=== PATIENT | female | born 1950 | race Caucasian/White ===

== ENCOUNTER 2016-06-11 10:18 | Observation (INO) | payer MEDICARE, OTHER ==
[~2016-06-11] VITALS: Ht 172.7 cm; Wt 70.0 kg
[2016-06-11] VITALS (7 sets, daily range): BP systolic 99–118; BP diastolic 46–57; PULSE 56–61; RESP 16–21; TEMP 97.7–98.7; O2SAT 93–98
[~2016-06-11 10:18] MED LIST: ACET325 PO; ARIC5TAB PO; ASPI81TA82 PO; ATEN-100 PO; CALTTAB PO; OMPR20CCR PO; OSTETAB3 PO; RIVA20 PO; SIMV20TA PO; TAB-TAB PO; Z.0.CPM; ZOFR8TAB PO
[2016-06-11] MEDS ORDERED: SODIUM CHLOR 0.9% 1000 ML INJ 1,000 ML IV ONE (12:45)
--- NOTE | 2016-06-11 12:59 | RADRPT ---
EXAM DATE/TIME: 06/11/2016 12:26 [facility] COMPARISON: No previous studies available for comparison. INDICATIONS : Chest pains mid sternal with shortness of breath. MEDICAL HISTORY : None. SURGICAL HISTORY : None. ENCOUNTER: Initial ACUITY: 1 day PAIN SCORE: 6/10 LOCATION: Bilateral chest FINDINGS: A single view of the chest demonstrates the lungs to be symmetrically aerated without evidence of mas s, infiltrate or effusion. The cardiomediastinal contours are unremarkable. Osseous structures are intact. CONCLUSION: No acute disease. Maximino Lam MD on June 11, 2016 at 12:57 Board Certified Radiologist. This report was verified electronically.
--- NOTE | 2016-06-11 13:53 | PD ---
HPI Chief Complaint: Cardiac Complaint Time Seen by Provider: 12:16 Travel History International Travel<30 days: No Contact w/Intl Traveler<30days: No Traveled to known affect area: No History of Present Illness HPI Patient is a 65-year-old female who presents to emergency room with complaints of near syncopal episode today. 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 Patient's friend who is at bedside reports the patient looked pale when this occurred. Patient reports that she felt as if her heart was beating really fast and felt as if she had irregular heart rate. Patient reports concerns as she has history of V. tach in the past, reports that the tech happened in the . Patient reports that because she had a few near-syncopal episodes this morning, decided to come to emergency room for evaluation. Patient currently with just generalized weakness. Patient denies any chest pain or shortness of breath at this time. Patient with no other complaints. PFSH Past Medical History Arthritis: Yes Heart Rhythm Problems: Yes (VTACH HX) Cancer: No Cardiovascular Problems: Yes (HX NON SUSTAINED V-TACH (CONTROLLED), HX THROMBUS ) High Cholesterol: Yes Diabetes: No Endocrine: No Gastrointestinal Disorders: Yes (GERD) Genitourinary: No Hepatitis: No Hiatal Hernia: No Hypertension: No Immune Disorder: No Implanted Vascular Access Dvce: No Musculoskeletal: Yes (ARTHRITIS) Neurologic: Yes (MILD COGNITIVE RECALL) Psychiatric: No Reproductive: No Respiratory: No Thyroid Disease: No Menopausal: Yes : 0 Past Surgical History Abdominal Surgery: No AICD: No Body Medical Devices: LEFT HIP REPLACEMENT Cardiac Surgery: No Ear Surgery: No Eye Surgery: No Gynecologic Surgery: Yes (HYSTEROSCOPY) Joint Replacement: Yes (HILARIO. HIPS) Neurologic Surgery: No Oral Surgery: No Pacemaker: No Thoracic Surgery: No Other Surgery: Yes Family History Family History: Negative Social History Alcohol Use: Yes (OCC WINE) Tobacco Use: No Substance Use: No Allergies-Medications (Allergen,Severity, Reaction): Coded Allergies: No Known Allergies (Verified , 11/05/14) Reported Meds & Prescriptions Reported Meds & Active Scripts Active Reported Metamucil (Psyllium Hydrophilic Mucilloid) 48.57 % Pow DIRECTED Tylenol 8 Hour Arthritis (Acetaminophen) 650 Mg Tab 650 Mg PO DIRECTED PRN Glucosamine 1,500 Mg Tab 1,500 Mg PO DAILY Calcium 600+D (Calcium Carbonate-Cholecalciferol) 600-800 Mg-Unit Tab 1 Tab PO BID Multi Vitamin (Multiple Vitamin) 1 Tab Tab 1 Tab PO DAILY Aspirin Adult Low Strength (Aspirin) 81 Mg Tabdr 81 Mg PO DAILY Atenolol 25 Mg Tab 25 Mg PO DAILY Namenda (Memantine) 10 Mg Tab 10 Mg PO BID Aricept (Donepezil) 10 Mg Tab 10 Mg PO HS Review of Systems General / Constitutional: No: Fever Eyes: No: Visual changes HENT: Positive: Lightheadedness, No: Headaches Cardiovascular: Positive: Chest Pain or Discomfort, Palpitations, Irregular Rhythm, Tachycardia, Diaphoresis, Syncope Respiratory: No: Shortness of Breath Gastrointestinal: No: Abdominal Pain Genitourinary: No: Dysuria Musculoskeletal: No: Pain Skin: No Rash Neurologic: Positive: Weakness Psychiatric: No: Depression Endocrine: No: Polydipsia Hematologic/Lymphatic: No: Easy Bruising Physical Exam Narrative GENERAL: NAD, Nontoxic SKIN: Warm and dry. HEAD: Atraumatic. Normocephalic. EYES: Pupils equal and round. No scleral icterus. No injection or drainage. ENT: No nasal bleeding or discharge. Mucous membranes pink and moist. NECK: Trachea midline. No JVD. CARDIOVASCULAR: Regular rate and rhythm. No murmur appreciated. RESPIRATORY: No accessory muscle use. Clear to auscultation. Breath sounds equal bilaterally. GASTROINTESTINAL: Abdomen soft, non-tender, nondistended. Hepatic and splenic margins not palpable. MUSCULOSKELETAL: No obvious deformities. No clubbing. No cyanosis. No edema. NEUROLOGICAL: Awake and alert. No obvious cranial nerve deficits. Motor grossly within normal limits. Normal speech. PSYCHIATRIC: Appropriate mood and affect; insight and judgment normal. Data Data Last Documented VS Vital Signs Date Time Temp Pulse Resp B/P Pulse Ox O2 Delivery O2 Flow Rate FiO2 06/11/16 14:03 54 103/51 51 111/53 58 110/57 06/11/16 12:14 16 06/11/16 10:20 97.7 97 Room Air Orders Electrocardiogram (06/11/16 ) Complete Blood Count With Diff (06/11/16 11:43) Basic Metabolic Panel (Bmp) (06/11/16 11:43) Ckmb (Isoenzyme) Profile (06/11/16 11:43) Troponin I (06/11/16 11:43) Chest, Single Ap (06/11/16 11:43) Orthostatic Vital Signs (06/11/16 12:30) Sodium Chlor 0.9% 1000 Ml Inj (Ns 1000 M (06/11/16 12:45) CKMB (06/11/16 14:10) CKMB% (06/11/16 14:10) Aspirin (Aspirin) (06/11/16 15:30) Admit Order (Ed Use Only) (06/11/16 15:29) Labs Laboratory Tests Test 06/11/16 14:10 White Blood Count 7.7 TH/MM3 Red Blood Count 4.12 MIL/MM3 Hemoglobin 13.2 GM/DL Hematocrit 38.3 % Mean Corpuscular Volume 93.0 FL Mean Corpuscular Hemoglobin 32.1 PG Mean Corpuscular Hemoglobin 34.5 % Concent Red Cell Distribution Width 14.0 % Platelet Count 244 TH/MM3 Mean Platelet Volume 8.2 FL Neutrophils (%) (Auto) 68.5 % Lymphocytes (%) (Auto) 21.5 % Monocytes (%) (Auto) 8.0 % Eosinophils (%) (Auto) 1.6 % Basophils (%) (Auto) 0.4 % Neutrophils # (Auto) 5.3 TH/MM3 Lymphocytes # (Auto) 1.6 TH/MM3 Monocytes # (Auto) 0.6 TH/MM3 Eosinophils # (Auto) 0.1 TH/MM3 Basophils # (Auto) 0.0 TH/MM3 CBC Comment DIFF FINAL Differential Comment Sodium Level 140 MEQ/L Potassium Level 4.2 MEQ/L Chloride Level 106 MEQ/L Carbon Dioxide Level 28.2 MEQ/L Anion Gap 6 MEQ/L Blood Urea Nitrogen 17 MG/DL Creatinine 0.69 MG/DL Estimat Glomerular Filtration 85 ML/MIN Rate Random Glucose 74 MG/DL Calcium Level 9.4 MG/DL Total Creatine Kinase 112 U/L Creatine Kinase MB 2.1 NG/ML Troponin I LESS THAN 0.02 NG/ML MDM Medical Decision Making Medical Screen Exam Complete: Yes Emergency Medical Condition: Yes Interpretation(s) EKG at 1107: Sinus bradycardia at 53 bpm, QT/QTC: 441/424, no acute st or t wave changes Vital Signs Date Time Temp Pulse Resp B/P Pulse Ox O2 Delivery O2 Flow Rate FiO2 06/11/16 12:14 16 06/11/16 10:20 97.7 58 16 118/56 97 Room Air Differential Diagnosis Arrhythmia, ACS, electrolyte abnormality, vasovagal syncope, dehydration, pneumonia Narrative Course Patient is a 65-year-old female who presents to emergency room with complaints of near syncopal episode today. Patient reports that she had a few episodes of near-syncope today with associated diaphoresis, lightheadedness, dizziness and chest pain. Patient was placed on promotional model arrival to his room. EKG ordered and evaluated, no acute ST-T wave changes. CBC, BMP, cardiac enzymes as well as x-ray of chest ordered for further evaluation symptoms. All labs and all studies reviewed, patient feeling much better. Plan to observation for near syncope and cardiac monitoring Case reviewed with family practice residents, accepts patients to service of Dr Miller Diagnosis Primary Impression: Near syncope Admitting Information Admitting Physician Requests: Observation Fe Mason DO Jun 11, 2016 13:53
[2016-06-11 14:38] LABS: AUTOMATED NEUTROPHIL # 5.3 TH/MM3 (1.8-7.7); BASOPHIL % 0.4 % (0.0-2.0); EOSINOPHIL # 0.1 TH/MM3 (0-0.4); EOSINOPHIL % 1.6 % (0.0-4.0); HEMATOCRIT 38.3 % (35.0-46.0); HEMO FLAGS DIFF FINAL; LYMPH % 21.5 % (9.0-44.0); LYMPHOCYTE # 1.6 TH/MM3 (1.0-4.8); MEAN CORPUSCULAR HEMOGLOBIN 32.1 PG (27.0-34.0); MEAN CORPUSCULAR HGB CONC 34.5 % (32.0-36.0); NEUT % 68.5 % (16.0-70.0); PLATELET COUNT 244 TH/MM3 (150-450); RED BLOOD COUNT 4.12 MIL/MM3 (4.00-5.30); WHITE BLOOD COUNT 7.7 TH/MM3 (4.0-11.0)
[2016-06-11] MEDS ORDERED: CALC1TAB37 PO (14:40)
[2016-06-11] MEDS ORDERED: META48.54 (14:40)
[2016-06-11] MEDS ORDERED: GLUC15009 PO (14:40)
[2016-06-11] MEDS ORDERED: NAME10TA PO (14:40)
[2016-06-11] MEDS ORDERED: ARIC10TA PO (14:40)
[2016-06-11] MEDS ORDERED: ASPI1TAB91 PO (14:40)
[2016-06-11] MEDS ORDERED: MULT-135 PO (14:40)
[2016-06-11] MEDS ORDERED: TYLE650T9 PO (14:40)
[2016-06-11] MEDS ORDERED: ATEN25TA PO (14:40)
[2016-06-11 14:55] LABS: ANION GAP 6 MEQ/L (5-15); BICARBONATE 28.2 MEQ/L (21.0-32.0); BLOOD UREA NITROGEN 17 MG/DL (7-18); CHLORIDE 106 MEQ/L (98-107); CREATINE KINASE 112 U/L (26-192); GLOMERULAR FILTRATION RATE 85 ML/MIN (>89); SODIUM (NA) 140 MEQ/L (136-145)
[2016-06-11 15:11] LABS: POTASSIUM 4.2 MEQ/L (3.5-5.1)
[2016-06-11 15:24] LABS: CKMB 2.1 NG/ML (0.5-3.6)
[2016-06-11] MEDS ORDERED: ASPIRIN 325 MG TAB PO ONE (15:30)
--- NOTE | 2016-06-11 15:34 | HHI.HP ---
[facility] Service Family Medicine Primary Care Physician Torie Cruz MD Admission Diagnosis Diagnoses: Chief Complaint: Lightheadedness International Travel<30 Days: No Contact w/Intl Traveler<30days: No Known Affected Area: No History of Present Illness 65 year old female with history of non-sustained V-tach presents to ED with complaints of feeling lightheaded with irregular heartbeat earlier today. 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 She also reports feeling an irregular heartbeat intermittently during that time; she states after about 40 minutes of feeling like this, her decided to bring her to the ED. states patient was also pale and diaphoretic. Patient denies chest pain. She states she went to a commercial energy rater for a few years; however she does not currently follow up with a commercial energy rater. She reports her last episode like this was in 2008. Patient denies any significant etoh intake in the last few days. 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 (Michael Sanders MD R1) Review of Systems Constitutional: COMPLAINS OF: Diaphoretic episodes Respiratory: DENIES: Shortness of breath Cardiovascular: COMPLAINS OF: Palpitations, DENIES: Chest pain, Syncope, Lower Extremity Edema Gastrointestinal: COMPLAINS OF: Nausea, DENIES: Vomiting (Michael Sanders MD R1) Past Family Social History Past Medical History DVT of RLE GERD Arthritis Hypercholesterolemia NSVT Alzheimer's Disease, diagnosed with mild cognitive impairment in 2013 Past Surgical History R hip replacement 2010 L hip surgery 2013 R knee replacement mid 2014 Colonoscopy 2012 Reported Medications Reported Meds & Active Scripts Active Reported Metamucil (Psyllium Hydrophilic Mucilloid) 48.57 % Pow DIRECTED Glucosamine 1,500 Mg Tab 1,500 Mg PO DAILY Calcium 600+D (Calcium Carbonate-Cholecalciferol) 600-800 Mg-Unit Tab 1 Tab PO BID Multi Vitamin (Multiple Vitamin) 1 Tab Tab 1 Tab PO DAILY Aspirin Adult Low Strength (Aspirin) 81 Mg Tabdr 81 Mg PO DAILY Atenolol 25 Mg Tab 25 Mg PO DAILY Namenda (Memantine) 10 Mg Tab 10 Mg PO BID Aricept (Donepezil) 10 Mg Tab 10 Mg PO HS (Michael Sanders MD R1) Allergies: Coded Allergies: No Known Allergies (Verified , 11/05/14) Family History Mother: Parkinson's, Alzheimers, Cardiomegaly Father: Osteoarthritis, A-fib, HLD, HTN Social History Tobacco: previous smoker quit in 1987, had smoked about 1 PPD for a few years Etoh: social occasions only Illicit drug use: never 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 SKIN: No rashes, ecchymoses or lesions. Cool and dry. HEAD: Atraumatic. Normocephalic. No temporal or scalp tenderness. EYES: PERRL. EOMI. No scleral icterus. No injection or drainage. ENT: No nasal drainage. MMM. Uvula midline. Airway patent. NECK: Trachea midline. No JVD. Supple. CARDIOVASCULAR: Regular rate and rhythm without murmurs, gallops, or rubs. RESPIRATORY: Clear to auscultation. Breath sounds equal bilaterally. No wheezes , rales, or rhonchi. GASTROINTESTINAL: Abdomen soft, nontender, nondistended. No hepatosplenomegaly or palpable masses. No guarding. MUSCULOSKELETAL: Extremities without cyanosis or edema. No joint tenderness or edema noted. No calf tenderness. NEUROLOGICAL: Awake and alert. Cranial nerves II through XII intact. Motor and sensory grossly within normal limits Laboratory Laboratory Tests Test 06/11/16 14:10 White Blood Count 7.7 Red Blood Count 4.12 Hemoglobin 13.2 Hematocrit 38.3 Mean Corpuscular Volume 93.0 Mean Corpuscular Hemoglobin 32.1 Mean Corpuscular Hemoglobin 34.5 Concent Red Cell Distribution Width 14.0 Platelet Count 244 Mean Platelet Volume 8.2 Neutrophils (%) (Auto) 68.5 Lymphocytes (%) (Auto) 21.5 Monocytes (%) (Auto) 8.0 Eosinophils (%) (Auto) 1.6 Basophils (%) (Auto) 0.4 Neutrophils # (Auto) 5.3 Lymphocytes # (Auto) 1.6 Monocytes # (Auto) 0.6 Eosinophils # (Auto) 0.1 Basophils # (Auto) 0.0 CBC Comment DIFF FINAL Differential Comment Sodium Level 140 Potassium Level 4.2 Chloride Level 106 Carbon Dioxide Level 28.2 Anion Gap 6 Blood Urea Nitrogen 17 Creatinine 0.69 Estimat Glomerular Filtration 85 Rate Random Glucose 74 Calcium Level 9.4 Total Creatine Kinase 112 Creatine Kinase MB 2.1 Troponin I LESS THAN 0.02 (Michael Sanders MD R1) Result Diagram: 06/11/16 1410 06/11/16 1410 Assessment and Plan Assessment and Plan 65 year old female with history of non-sustained V-tach presents with: Code Status Full code Discussed Condition With sdw Dr. Jhaveri wdw Dr. Miller (Michael Sanders MD R1) Problem List: (1) Near syncope Status: Acute Plan: Most likely due to a cardiac arrhythmia as patient has a h/o NSVT Orthostatic vital signs are unremarkable EKG shows sinus bradycardia - Will keep patient on continuous telemetry - Obtain carotid US - Continue home atenolol, monitor pulse as it is slightly bradycardic - Trend troponins and EKGs to rule out an ACS (2) Dementia Status: Acute Plan: Continue home medications (3) Nutrition, metabolism, and development symptoms Status: Acute Plan: Fluids: none Electrolytes: WNLs Nutrition: heart healthy diet DVT PPX: Lovenox (Michael Sanders MD R1) Physician Certification 2 Midnight Certification Type: Admission for Inpatient Services Order for Inpatient Services The services are ordered in accordance with Medicare regulations or non- Medicare payer requirements, as applicable. In the case of services not specified as inpatient-only, they are appropriately provided as inpatient services in accordance with the 2-midnight benchmark. Estimated LOS (days): 1 days is the estimated time the patient will need to remain in the hospital, assuming treatment plan goals are met and no additional complications. Post-Hospital Plan: Home (Michael Sanders MD R1) 2 Midnight Certification Type: Admission for Inpatient Services Post-Hospital Plan: Not yet determined (Semaj Miller MD) Michael Sanders MD R1 Jun 11, 2016 15:34 Semaj Miller MD Jun 11, 2016 18:55
[2016-06-11] MEDS ORDERED: SODIUM CHLORIDE 0.9% FLUSH 5 ML FLUSH FLUSH PRN (16:45)
[2016-06-11] MEDS ORDERED: SODIUM CHLORIDE 0.9% FLUSH 5 ML FLUSH IVF PRN (16:45)
[2016-06-11] MEDS ORDERED: NALOXONE HCL 0.4 MG/ML AMP IV PRN (16:45)
[2016-06-11] MEDS: ASPIRIN EC 81 MG TABEC PO SCH (17:00)
[2016-06-11] MEDS ORDERED: ACETAMINOPHEN 650 MG PO PRN (17:00)
[2016-06-11] MEDS ORDERED: ACETAMINOPHEN 325 MG TAB PO PRN (17:00)
[2016-06-11] MEDS: ATENOLOL 25 MG TAB PO SCH (17:00)
[2016-06-11] MEDS ORDERED: DOCUSATE SODIUM 50 MG/SENNA 8.6 MG TAB PO PRN (18:00)
[2016-06-11] MEDS ORDERED: ONDANSETRON HCL 4 MG/2 ML VIAL IV PRN (18:00)
--- NOTE | 2016-06-11 19:38 | EKG ---
Date Performed: 06/11/2016 Time Performed: 11:07:25 PTAGE: 65 years EKG: SINUS BRADYCARDIA Compared to prior tracing no significant change BORDERLINE ECG PREVIOUS TRACING : 06/16/2013 08.25 DOCTOR: Ebenezer Polanco Interpretating Date/Time 06/11/2016 19:36:35
--- NOTE | 2016-06-11 20:03 | HHI.FPPN ---
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 Did have some nausea, no chest pain. By the time of presentation to the emergency room she was relatively asymptomatic. Notable in the while working in [place] she was diagnosed with ventricular tachycardia which presented as a near syncopal episode while driving. Extensive evaluation at that time led to her being placed on atenolol. She has seen a local ditch cleaner grossly 4 years ago and thinks that that time she had a echocardiogram, possibly monitoring, and a nuclear stress test. No history of coronary disease. Please refer to resident history and physical for complete discussion of the past medical history, family history, social history and review of systems. Notable that the patient self describes herself as having a dementia, has been on Aricept, also demented. Her primary care physician is Dr. Dorman, a local donor specialist. Objective Vitals Vital Signs Date Time Temp Pulse Resp B/P Pulse Ox O2 Delivery O2 Flow Rate FiO2 06/11/16 18:49 97.9 61 20 101/46 93 06/11/16 14:03 54 103/51 51 111/53 58 110/57 06/11/16 12:14 16 06/11/16 10:20 97.7 58 16 118/56 97 Room Air Result Diagram: 06/11/16 1410 06/11/16 1410 Objective Remarks Vital signs noted. Examined in the presence of the nurse. Gen. appearance: Youthful appearing patient, normal affect, excellent eye contact. HEENT: Grossly nonlocalizing. Neck: No thyromegaly, carotid bruits or adenopathy. Lungs: Clear to auscultation. Cardiac: S1-S2, no appreciable murmurs. (Patient describes in the past having been told that she had tricuspid insufficiency). Abdomen: Soft and benign, PO2 unremarkable, no tenderness, no masses or organomegaly. Extremities: No edema, intact pedal pulses, feet are warm and dry. Neurologic: Grossly nonlocalizing. Labs and EKG reviewed. Sinus rhythm pulse 53 at the time of EKG. A/P Assessment and Plan Clinical assessment: 65-year-old woman with a history of having been diagnosed in the of ventricular tachycardia treated medically. Presents with a 45 minute episode of near syncope with diaphoresis nausea and vomiting described as "ortiz". Do suspect a significant cardiac arrhythmia. Also history of dementia self described by the patient with some memory impairment and difficulty finding correct words. Patient seen and examined. Case reviewed and discussed with resident team. Agree with plan of care as discussed with the and documented in the resident note. Semaj Miller MD Jun 11, 2016 20:03
[2016-06-11] MEDS: MEMANTINE HCL 10 MG TAB PO SCH (20:37)
[2016-06-11] MEDS: SODIUM CHLORIDE 0.9% FLUSH 5 ML FLUSH IVF SCH (20:37)
[2016-06-11] MEDS ORDERED: DONEPEZIL HCL 5 MG TAB PO SCH (21:00)
[2016-06-11] MEDS ORDERED: SODIUM CHLORIDE 0.9% FLUSH 5 ML FLUSH FLUSH SCH (21:00)
[2016-06-11 22:22] LABS: CREATINE KINASE 84 U/L (26-192)
[2016-06-12 01:49] VITALS: BP_SYST 109; BP_SYST 145; BP_DIAS 53; BP_DIAS 67; PULSE 57; PULSE 61; RESP 18; TEMP 97.6; TEMP 98.1; O2SAT 93; O2SAT 94
[2016-06-12 03:36] LABS: BICARBONATE 29.7 MEQ/L (21.0-32.0); POTASSIUM 3.9 MEQ/L (3.5-5.1)
[2016-06-12 03:48] LABS: CREATINE KINASE 69 U/L (26-192)
[2016-06-12 06:36] VITALS: BP 126/68; PULSE 84; RESP 21; TEMP 98.7; O2SAT 99
[2016-06-12 08:00] VITALS: BP 111/53; PULSE 58; RESP 20; TEMP 95.5; O2SAT 99
[2016-06-12] MEDS ORDERED: ENOXAPARIN SODIUM 40 MG/0.4 ML SYRINGE SQ SCH (09:00)
[2016-06-12] MEDS: ATENOLOL 25 MG TAB PO SCH (09:00)
--- NOTE | 2016-06-12 09:04 | RADRPT ---
EXAM DATE/TIME: 06/12/2016 07:55 [facility] COMPARISON: No previous studies available for comparison. INDICATIONS : Syncope. MEDICAL HISTORY : Hypercholesterolemia. Arthritis. GERD. V-Tach. DVT. Mild cognitive recall. SURGICAL HISTORY : Hysterscopy. Bilateral knee and hip replacement. ENCOUNTER: Initial ACUITY: 1 day PAIN SCORE: 0/10 LOCATION: Bilateral neck PEAK SYSTOLIC VELOCITIES (cm/sec): ICA/CCA RATIO: Right: 0.9 Left: 0.8 ICA: Right: 88 Left: 84 CCA: Right: 94 Left: 100 ECA: Right: 73 Left: 86 VERTEBRAL: Right: 53 antegrade Left: 87 antegrade Elevated flow velocities and ICA/CCA ratios have been found to correlate with increased degrees of vessel stenosis, calculated as percentage of diameter relative to a normal segment of distal ICA/CCA FINDINGS: RIGHT CAROTID: No significant stenosis is visualized. The waveforms are within normal limits. LEFT CAROTID: No significant stenosis is visualized. The waveforms are within normal limits. VERTEBRAL ARTERIES: Antegrade flow is seen in both vertebral arteries. MISCELLANEOUS: None. CONCLUSION: Normal examination. Jeanne Mora MD on June 12, 2016 at 9:02 Board Certified Radiologist. This report was verified electronically.
[2016-06-12] MEDS: MEMANTINE HCL 10 MG TAB PO SCH (09:16)
[2016-06-12] MEDS: ASPIRIN EC 81 MG TABEC PO SCH (09:17)
[2016-06-12] MEDS: SODIUM CHLORIDE 0.9% FLUSH 5 ML FLUSH IVF SCH (09:17)
[2016-06-12] MEDS ORDERED: ESCI10TA PO (09:19)
[2016-06-12 09:53] LABS: BLOOD, URINE NEG (NEG); GLUCOSE,URINE NEG (NEG); KETONE, URINE NEG (NEG); NITRITE,URINE NEG (NEG); URINE COLOR LIGHT-YELLOW (YELLW/STRAW)
[2016-06-12 09:54] LABS: COMMENT (UR) CULT NOT INDICATED; CULTURE IF INDICATED CULT NOT INDICATED
[2016-06-12] MEDS ORDERED: METO25TA3 PO (11:32)
--- NOTE | 2016-06-12 11:33 | HHI.DCPOC ---
Discharge Care Plan Diagnosis: (1) Near syncope Goals to Promote Your Health * To prevent worsening of your condition and complications * To maintain your health at the optimal level Directions to Meet Your Goals Take your medications as prescribed Follow your dietary instruction Follow activity as directed Keep your appointments as scheduled Take your immunizations and boosters as scheduled If your symptoms worsen call your PCP, if no PCP go to Urgent Care Center or Emergency Room Smoking is Dangerous to Your Health. Avoid second hand smoke Call the 24-hour hour crisis hotline for domestic abuse at Michael Sanders MD R1 Jun 12, 2016 11:33
[2016-06-12 12:23] VITALS: PULSE 75
--- NOTE | 2016-06-12 13:34 | HHI.FPPN ---
Subjective Remarks No acute events overnight. Vital signs unremarkable except for asymptomatic bradycardia. This morning patient was walking around in no acute distress and without issues. Denies any repeat episodes of lightheadedness, diaphoresis. Denies chest pain, shortness of breath. Review of telemetry was unremarkable. Objective Vitals Vital Signs Date Time Temp Pulse Resp B/P Pulse Ox O2 Delivery O2 Flow Rate FiO2 06/12/16 12:23 75 06/12/16 08:00 95.5 58 20 111/53 99 06/12/16 06:36 98.7 84 21 126/68 99 06/12/16 01:49 98.1 57 18 109/53 93 06/11/16 22:37 56 06/11/16 20:51 98 06/11/16 20:17 59 06/11/16 20:11 98.7 59 21 99/52 98 06/11/16 18:49 97.9 61 20 101/46 93 06/11/16 14:03 54 103/51 51 111/53 58 110/57 Result Diagram: 06/11/16 1410 06/12/16 0239 Imaging Last Impressions Carotid Artery Ultrasound 06/12/16 0600 Signed Impressions: Service Date/Time: Sunday, June 12, 2016 07:55 - CONCLUSION: Normal examination. Jeanne Mora MD Chest X-Ray 06/11/16 1143 Signed Impressions: Service Date/Time: May 12:26 - CONCLUSION: No acute disease. Maximino Lam MD Objective Remarks GEN: Well-developed, well-nourished patient. No acute distress. CV: Regular rate and rhythm without obvious murmurs LUNGS: Clear to auscultation bilaterally. Normal respiratory effort. No wheezes , rales, rhonchi. EXT: No edema. No calf tenderness. NEURO/PSYCH: Awake, alert. Appropriate insight and judgment. Normal speech A/P Assessment and Plan 65 year old female with history of non-sustained V-tach. Admitted for pre- syncopal evaluation Discharge Planning Today after contacting patient's PCP and recommending the need for cardiology follow-up. sdw Dr. Sanders and Dr. Miller Problem List: (1) Near syncope Status: Resolved Plan: Most likely due to a cardiac arrhythmia as patient has a h/o NSVT but did not have tachycardia on initial presentation. Patient remained asymptomatic overnight without any events on telemetry. Etiology unclear but would benefit from an outpatient workup rather than inpatient as patient is clinically stable. Recommend cardiology follow-up at outpatient. Patient's PCP was contacted and informed of these recommendations. -UA negative -ACS negative -Orthostatic vital signs are unremarkable -EKG and telemetry shows sinus bradycardia -Carotid ultrasound negative -Will decrease home beta alfredo to 12.5 mg metoprolol tartrate BID (2) Dementia Status: Acute Plan: Continue home medications (3) Nutrition, metabolism, and development symptoms Status: Acute Plan: Fluids: none Electrolytes: WNLs Nutrition: heart healthy diet DVT PPX: Lovenox Portia Jhaveri MD R2 Jun 12, 2016 13:33
--- NOTE | 2016-06-12 22:55 | EKG ---
Date Performed: 06/12/2016 Time Performed: 02:20:08 PTAGE: 65 years EKG: SINUS BRADYCARDIA QUESTIONABLE OLD SEPTAL INFARCT NO SERIAL CHANGE SINCE THE MOST RECENT TR ACING ABNORMAL ECG PREVIOUS TRACING : 06/11/2016 20.00 DOCTOR: Nova Cramer Interpretating Date/Time 06/12/2016 22:54:48
--- NOTE | 2016-06-12 22:55 | EKG ---
Date Performed: 06/11/2016 Time Performed: 20:00:34 PTAGE: 65 years EKG: Sinus rhythm QUESTIONABLE OLD ANTEROSEPTAL INFARCT Compared to PREVIOUS TRACING , there has been no significant serial change. PREVIOUS TRACIN 017 11.07 DOCTOR: Nova Cramer Interpretating Date/Time 06/12/2016 22:54:18
== END 2016-06-12 13:11 | disposition home or self-care (01) ==
LOC: NEPE 10:18 → NEDA 15:32 → NEPGCP 18:19
PROVIDERS: ADMIT Family Medicine; ATTEND Family Medicine
DX: R55 Syncope and collapse (principal); F02.80 Dementia in other diseases classified elsewhere, unspecified severity, without behavioral disturbance, psychotic disturbance, mood disturbance, and anxiety; G30.9 Alzheimer's disease, unspecified; R07.89 Other chest pain; R06.02 Shortness of breath; I47.2 Ventricular tachycardia; I49.9 Cardiac arrhythmia, unspecified; K21.9 Gastro-esophageal reflux disease without esophagitis; E78.00 Pure hypercholesterolemia, unspecified; M19.90 Unspecified osteoarthritis, unspecified site; Z87.891 Personal history of nicotine dependence; Z96.641 Presence of right artificial hip joint; Z96.651 Presence of right artificial knee joint
CPT/HCPCS: 71010; 80048; 81001; 82550; 82552; 84443; 84484; 85025; 93005; 93880; 96360; 99285; G0378; J1650; J7030